=== PATIENT | male | born 1955 | race African-American/Black ===

== ENCOUNTER 2021-06-09 17:14 | Emergency (ER) | payer BC, OTHER ==
[2021-06-09] MEDS ORDERED: Ondansetron 4 MG/2 ML SDV IVPUSH ONE (18:26)
[2021-06-09] MEDS ORDERED: Ketorolac 30 MG/ML SDV IVPUSH ONE (18:26)
[2021-06-09] MEDS ORDERED: Sodium Chloride 0.9% 80 ML IV SCH (19:15)
[2021-06-09] MEDS ORDERED: Iopamidol 612 MG/ML 100 ML Bottle IV SCH (19:15)
--- NOTE | 2021-06-09 19:53 | EDM.PDOC ---
ED HPI GENERAL MEDICAL PROBLEM - General Chief Complaint: Abdominal Pain Stated Complaint: VIA [facility] Time Seen by Provider: 06/09/21 18:04 Source of Information: Reports: Patient History Limitations: Reports: No Limitations - History of Present Illness INITIAL COMMENTS - FREE TEXT/NARRATIVE: Rufus is a 66-year-old male presenting to the ED for evaluation of right lower quadrant abdominal pain. Patient was eating a [employer] pizza around 4 PM when he he developed acute onset of right lower quadrant pain associated with diaphoresis and nausea. He did not have any vomiting. He denies any diarrhea. He has had normal bowel movements today. He has not had any fever but has had chills. Patient does have a past medical history for kidney stones. He has not had any intra-abdominal surgeries. He still has his gallbladder and appendix. - Related Data Allergies Allergy/AdvReac Type Severity Reaction Status Date / Time No Known Allergies Allergy Verified 06/09/21 17:28 Home Meds: Home Meds NK [No Known Home Meds] 06/09/21 [History] Past Medical History - Past Surgical History HEENT Surgical History: Reports: Tonsillectomy Male Surgical History: Reports: Ureteral Stent, Other (See Below) Other Male Surgeries/Procedures: kidney stones with stent Social & Family History - Tobacco Use Tobacco Use Status *Q: Never Tobacco User - Recreational Drug Use Recreational Drug Use: No ED ROS GENERAL - Review of Systems Review Of Systems: See Below Constitutional: Reports: Chills, Diaphoresis HEENT: Reports: No Symptoms Respiratory: Reports: No Symptoms Cardiovascular: Reports: No Symptoms Endocrine: Reports: No Symptoms GI/Abdominal: Reports: Abdominal Pain (Right lower quadrant), Nausea. Denies: Constipation, Diarrhea, Decreased Appetite, Vomiting : Reports: No Symptoms Musculoskeletal: Reports: No Symptoms Skin: Reports: No Symptoms Neurological: Reports: No Symptoms Psychiatric: Reports: No Symptoms Hematologic/Lymphatic: Reports: No Symptoms Immunologic: Reports: No Symptoms ED EXAM, RENAL/ - Physical Exam Exam: See Below Exam Limited By: No Limitations General Appearance: Alert, Anxious, Moderate Distress Eye Exam: Bilateral Eye: EOMI, PERRL Throat/Mouth: Normal Inspection, Normal Oropharynx, Normal Voice, No Airway Compromise Head: Atraumatic, Normocephalic Neck: Normal Inspection, Supple Respiratory/Chest: No Respiratory Distress, Lungs Clear, Normal Breath Sounds Cardiovascular: Normal Peripheral Pulses, Regular Rate, Rhythm, No Murmur GI/Abdominal: Soft, Guarding, Tender (Right lower quadrant tenderness to palpation), Abnormal Bowel Sounds (Diminished bowel sounds throughout the abdomen). No: Rebound (Male) Exam: No Hernia Back Exam: Normal Inspection Extremities: Normal Inspection, Normal Range of Motion Neurological: Alert, Oriented, Normal Cognition, No Motor/Sensory Deficits Psychiatric: Normal Affect, Normal Mood Skin Exam: Warm, Dry Course - Vital Signs Last Recorded V/S: Last Vital Signs Temp 36.6 C 06/09/21 17:33 Pulse 70 06/09/21 17:33 Resp 16 06/09/21 17:33 BP 136/77 06/09/21 17:33 Pulse Ox 99 06/09/21 17:33 - Orders/Labs/Meds Orders: Active Orders 24 hr Category Date Time Status Abdomen Pelvis w Cont [CT] Stat Exams 06/09/21 18:26 Taken UA W/MICROSCOPIC [URIN] Stat Lab 06/09/21 18:26 Ordered Iopamidol [Isovue-300 (61%)] Med 06/09/21 19:15 Active 100 ml IV . DIRECTED Sodium Chloride 0.9% [Normal Saline] 80 ml Med 06/09/21 19:15 Active IV ASDIRECTED Medication Orders Sodium Chloride (Normal Saline) 80 mls @ 3 mls/sec IV ASDIRECTED LILIANA Last Admin: 06/09/21 19:24 Dose: 3 mls/sec Documented by: Realius Iopamidol (Iopamidol 612 Mg/Ml 100 Ml Bottle) 100 ml IV . DIRECTED LILIANA Last Admin: 06/09/21 19:24 Dose: 100 ml Documented by: [email or web address] Labs: Laboratory Tests 06/09/21 06/09/21 06/09/21 Range/Units 18:41 18:41 18:41 WBC 6.7 (4.5-11.0) K/uL RBC 4.82 (4.30-5.90) M/uL Hgb 14.0 (12.0-15.0) g/dL Hct 40.9 (40.0-54.0) % MCV 85 (80-98) fL MCH 29 (27-31) pg MCHC 34 (32-36) % Plt Count 180 (150-400) K/uL Neut % (Auto) 74.2 H (36-66) % Lymph % (Auto) 17.0 L (24-44) % [place] % (Auto) 7.7 H (2-6) % Eos % (Auto) 0.7 L (2-4) % Baso % (Auto) 0.4 (0-1) % Sodium 138 L (140-148) mmol/L Potassium 3.9 (3.6-5.2) mmol/L Chloride 100 (100-108) mmol/L Carbon Dioxide 24 (21-32) mmol/L Anion Gap 17.9 H (5.0-14.0) mmol/L BUN 16 (7-18) mg/dL Creatinine 1.3 (0.8-1.3) mg/dL Est Cr Clr Drug Dosing 56.65 mL/min Estimated GFR (MDRD) > 60 (>60) Glucose 122 H (74-106) mg/dL Lactic Acid 1.5 (0.4-2.0) mmol/L Calcium 8.8 (8.5-10.1) mg/dL Total Bilirubin 0.4 (0.2-1.0) mg/dL AST 26 (15-37) U/L ALT 36 (12-78) U/L Alkaline Phosphatase 49 (46-116) U/L C-Reactive Protein < 0.05 (0.0-0.3) mg/dL Total Protein 7.5 (6.4-8.2) g/dL Albumin 4.1 (3.4-5.0) g/dL Globulin 3.4 (2.3-3.5) g/dL Albumin/Globulin Ratio 1.2 (1.2-2.2) Meds: Medications Generic Name Dose Route Start Last Admin Trade Name Freq PRN Reason Stop Dose Admin Sodium Chloride 80 mls @ 3 mls/sec 06/09/21 19:15 06/09/21 19:24 Normal Saline IV 3 mls/sec ASDIRECTED LILIANA Administration Iopamidol 100 ml 06/09/21 19:15 06/09/21 19:24 Iopamidol 612 Mg/Ml 100 Ml Bottle IV 100 ml . DIRECTED LILIANA Administration Discontinued Medications Generic Name Dose Route Start Last Admin Trade Name Freq PRN Reason Stop Dose Admin Ketorolac Tromethamine 30 mg 06/09/21 18:26 06/09/21 18:36 Ketorolac 30 Mg/Ml Sdv IVPUSH 06/09/21 18:27 30 mg ONETIME ONE Administration Ondansetron HCl 4 mg 06/09/21 18:26 06/09/21 18:36 Ondansetron 4 Mg/2 Ml Sdv IVPUSH 06/09/21 18:27 4 mg ONETIME ONE Administration - Re-Assessments/Exams Free Text/Narrative Re-Assessment/Exam: 06/09/21 19:55 I reviewed the patient's labs showing a normal CBC with a leukocyte count of 6.7, hemoglobin of 14.0, hematocrit of 40.9, and a platelet count of 180,000. Comprehensive metabolic panel is unremarkable. Lactic acid is 1.5. C-reactive protein is less than 0.05. Patient underwent a CT of the abdomen and pelvis with contrast demonstrating a normal gallbladder and appendix. The colon is normal caliber and wall thickness. Pancreas is unremarkable. Liver and spleen are unremarkable. Patient has mild hydronephrosis on the right and a 2 mm stone is seen at the verge of the right UVJ. There is no hydroureter. 06/09/21 19:56 plan is to send the patient home with Toradol and Zofran for pain control and nausea. I did give him a work note taking him off until 06/12/2021. Indications return to the ED were discussed. I encouraged him to drink copious amounts of water (10 ounces every hour he is awake for the next week) to inc rease his urine flow and decrease likelihood of any clots forming in the ureter. She is in agreement with this plan and suitable for discharge. Departure - Departure Time of Disposition: 20:00 Disposition: Home, Self-Care 01 Clinical Impression: Calcium ureterolithiasis, Renal colic on right side - Discharge Information Instructions: Renal Colic, [id number], Kidney Stones, [id number] Referrals: PCP,None [Primary Care Provider] - Care Plan Goals: As we discussed, I would recommend drinking 10 ounces of water every hour you are awake for the next 7 days. This will increase urine output and possibly prevent clot from forming in your ureter causing further complications. I am sending you home with a prescription for both Zofran for nausea and Toradol for pain. These have been sent out to the [facility] so that you have them tonight. Should you develop significant increase in pain please return to the ED for reevaluation. Sepsis Event Note (ED) - Evaluation Sepsis Screening Result: No Definite Risk - Focused Exam Vital Signs: Vital Signs Temp Pulse Resp BP Pulse Ox 06/09/21 17:33 36.6 C 70 16 136/77 99 06/09/21 17:19 36.6 C 67 16 136/77 97 - Problem List & Annotations (1) Calcium ureterolithiasis SNOMED Code(s): 92587143 Code(s): N20.1 - CALCULUS OF URETER Status: Acute Priority: High Current Visit: Yes (2) Renal colic on right side SNOMED Code(s): 9966813 Code(s): N23 - UNSPECIFIED RENAL COLIC Status: Acute Priority: High Current Visit: Yes - Problem List Review Problem List Initiated/Reviewed/Updated: Yes - My Orders Last 24 Hours: My Active Orders 06/09/21 18:26 Abdomen Pelvis w Cont [CT] Stat UA W/MICROSCOPIC [URIN] Stat 06/09/21 19:15 Iopamidol [Isovue-300 (61%)] 100 ml IV . DIRECTED Sodium Chloride 0.9% [Normal Saline] 80 ml IV ASDIRECTED - Assessment/Plan Last 24 Hours: My Active Orders 06/09/21 18:26 Abdomen Pelvis w Cont [CT] Stat UA W/MICROSCOPIC [URIN] Stat 06/09/21 19:15 Iopamidol [Isovue-300 (61%)] 100 ml IV . DIRECTED Sodium Chloride 0.9% [Normal Saline] 80 ml IV ASDIRECTED
--- NOTE | 2021-06-09 21:16 | CRLCT ---
For Patients: As a result of the Century Cures Act, medical imaging exams and procedure reports are released immediately into your electronic medical record. You may view this report before your referring provider. If you have questions, please contact your health care provider. INDICATION: Right lower quadrant abdominal pain. TECHNIQUE: CT abdomen and pelvis performed after IV injection of 100 mL of Isovue-300. FINDINGS: 3 mm partially obstructing stone in the right UVJ results in mild ureteral dilatation and mild hydronephrosis on the right. This partially obstructing stone results in moderate delayed enhancement of the right kidney. Small diffuse soft tissue stranding and fluid about the right kidney. All these findings should be related to the right UVJ stone being partially obstructive. Clinical and laboratory correlation is recommended to exclude superimposed renal ascending infection. Small cyst right kidney superiorly. Mild lymph node prominence in the junito hepatis and portacaval region likely reactive had moderate prostatic enlargement. Trace amount of fluid in the pelvis posteriorly. Few scattered colonic diverticula. Appendix is normal. Minimal posterior subluxation of L4 on L5. Mild dependent platelike and ill-defined atelectasis in the lower lobes. Remainder negative. IMPRESSION: 1. 3 mm partially obstructing stone in the right UVJ results in mild hydronephrosis and other findings consistent with ureteral obstruction as described above. Clinical and laboratory correlation is recommended to exclude superimposed ascending renal infection. 2. Trace amount of fluid in the pelvis posteriorly is likely related to the right ureteral and renal findings described above. 3. Moderate prostatic enlargement. Other findings above. Please note that all CT scans at this facility use dose modulation, iterative reconstruction, and/or weight-based dosing when appropriate to reduce radiation dose to as low as reasonably achievable. Dictated by Kit Crouch MD @ 06/09/2021 9:16:[address] Kit Crouch @ Jun 09 2021 9:16PM
== END 2021-06-09 20:24 | disposition home or self-care (01) ==
LOC: JP.ED 17:14
DX: N13.2 Hydronephrosis with renal and ureteral calculous obstruction (principal)
CPT/HCPCS: 36415; 74177; 80053; 83605; 85025; 86140; 96374; 96375; 99285; J1885; J2405; Q9967